=== PATIENT | female | born 1980 | race Caucasian/White ===

== ENCOUNTER 2018-05-02 11:38 | Emergency (ER) | payer OTHER, MEDICAID, SELFPAY ==
[2018-05-02 12:09] VITALS: BP 117/82; PULSE 90; RESP 13; TEMP 37.2; O2SAT 100
--- NOTE | 2018-05-02 14:50 | ED.ABDPAIN ---
HPI - Abdominal Pain <SAMMI Varela - Last Filed: 05/02/18 21:52> General Chief Complaint: Abdominal Pain Stated Complaint: STOMACH PAIN/VOMITING/SHAKINESS Time Seen by Provider: 05/02/18 14:35 Source: patient Mode of arrival: ambulatory Limitations: no limitations History of Present Illness HPI narrative: 37-year-old healthy female who was everyday smoker for complaint of having abdominal pain to her epigastric area over the past couple days. She also reports having nausea vomiting during the same timeframe. She was having some diarrhea as well. She denies any trauma to the abdomen area. Decreased p.o. intake due to the nausea vomiting. She denies any fevers although she does states she has had some chills. No urinary symptoms. Last bowel movement was earlier today and was soft. No flank pain. She denies any stressors relievers of her symptoms. MD complaint: abdominal pain Related Data Home Medications Medication Instructions Recorded Confirmed sertraline [Zoloft] 100 mg PO QDAY #0 08/10/16 Previous Rx's Medication Instructions Recorded hydrocodone-acetaminophen 0 tab PO Q6HP PRN #15 tab 08/10/16 ketorolac 10 mg PO Q6HP PRN #15 tab 08/10/16 methocarbamol 500 mg PO QIDP PRN #14 tab 08/10/16 ondansetron 4 mg PO BID-TID PRN #12 tab 05/02/18 Allergies Allergy/AdvReac Type Severity Reaction Status Date / Time No Known Drug Allergies Allergy Verified 05/02/18 15:05 Review of Systems <SAMMI Varela - Last Filed: 05/02/18 21:52> Constitutional Denies chills, Denies fever(s), Denies lethargy and Denies weakness Eyes Denies change in vision, Denies eye discharge, Denies irritation and Denies loss of vision ENT Ears, Nose, Mouth, and Throat: Denies change in voice, Denies neck pain and Denies sore throat Cardiovascular Denies chest pain, Denies irregular heart rhythm, Denies lightheadedness, Denies palpitations, Denies dyspnea, Denies dyspnea on exertion and Denies orthopnea Respiratory Denies cough, Denies dyspnea, Denies dyspnea on exertion and Denies wheezing Gastrointestinal Gastrointestinal: Reports abdominal pain, Denies change in bowel habits, Denies diarrhea, Denies nausea and Reports vomiting Genitourinary Denies hematuria, Denies flank pain, Denies urinary incontinence and Denies urinary urgency Musculoskeletal Denies neck pain Integumentary/Breasts Denies pruritus, Denies erythema, Denies rash and Denies wounds Neurologic Denies confusion, Denies loss of vision and Denies weakness Psychiatric Denies anxiety, Denies confusion, Denies depression, Denies homicidal ideation and Denies suicidal ideation Endocrine Denies palpitations Allergic/Immunologic Denies wheezing Exam <SAMMI Varela - Last Filed: 05/02/18 21:52> Initial Vital Signs Initial Vital Signs: Vital Signs Temperature 99 F 05/02/18 12:09 Pulse Rate 90 05/02/18 12:09 Respiratory Rate 13 05/02/18 12:09 Blood Pressure 117/82 05/02/18 12:09 Pulse Oximetry 100 05/02/18 12:09 Const General: cooperative and well developed Nutritional Appearance: well nourished Orientation: alert, awake, oriented x3 and not confused HENTX Mouth: oral mucosae normal and moist mucous membranes Eyes Conjunctivae: conjunctivae normal Sclera: sclerae normal Pupils: PERRL EOM: EOM intact bilaterally Resp Effort & Inspection: normal respiratory effort, able to speak in complete sentences, no respiratory distress and no use of accessory muscles Auscultation: clear to auscultation bilaterally, no rales, no rhonchi and no wheezes Cardio Rate: regular rate Rhythm: regular rhythm Heart Sounds: no click, no gallops, no murmurs and no rubs Pulses: normal peripheral pulses GI Inspection: non-distended Palpation: soft, no hepatosplenomegaly, No guarding, No pulsatile mass and tender (Tenderness epigastric) Auscultation: normal bowel sounds Skin General: no rashes or lesions noted, No jaundice and No petechiae Neuro General: alert, oriented x3, gait normal and no focal motor deficits Speech: speech normal <Xi Munguia DO - Last Filed: 05/06/18 07:17> Initial Vital Signs Initial Vital Signs: Vital Signs Temperature 99 F 05/02/18 12:09 Pulse Rate 90 05/02/18 12:09 Respiratory Rate 13 05/02/18 12:09 Blood Pressure 117/82 05/02/18 12:09 Pulse Oximetry 100 05/02/18 12:09 Course <SAMMI Varela - Last Filed: 05/02/18 21:52> Orders Ordered: Discontinued Medications Acetaminophen (Tylenol) 650 mg PO NOW ONE Stop: 05/02/18 17:41 Last Admin: 05/02/18 17:57 Dose: 650 mg Sodium Chloride (Normal Saline 0.9%) 500 mls @ 1,000 mls/hr IV BOLUS ONE Stop: 05/02/18 15:24 Last Infusion: 05/02/18 17:53 Dose: 1,000 mls/hr Admin: 05/02/18 15:22 Dose: 1,000 mls/hr Ondansetron HCl (Zofran) 4 mg IV NOW ONE Stop: 05/02/18 14:56 Last Admin: 05/02/18 15:21 Dose: 4 mg Vital Signs - 8 hr 05/02/18 18:04 Pulse Rate 86 Respiratory Rate 15 Blood Pressure [Left Arm] 116/92 H Pulse Oximetry 99 <Xi Munguia DO - Last Filed: 05/06/18 07:17> Orders Ordered: Discontinued Medications Acetaminophen (Tylenol) 650 mg PO NOW ONE Stop: 05/02/18 17:41 Last Admin: 05/02/18 17:57 Dose: 650 mg Sodium Chloride (Normal Saline 0.9%) 500 mls @ 1,000 mls/hr IV BOLUS ONE Stop: 05/02/18 15:24 Last Infusion: 05/02/18 17:53 Dose: 1,000 mls/hr Admin: 05/02/18 15:22 Dose: 1,000 mls/hr Ondansetron HCl (Zofran) 4 mg IV NOW ONE Stop: 05/02/18 14:56 Last Admin: 05/02/18 15:21 Dose: 4 mg Vital Signs - 8 hr 05/02/18 18:04 Pulse Rate 86 Respiratory Rate 15 Blood Pressure [Left Arm] 116/92 H Pulse Oximetry 99 MDM - Abdominal Pain <SAMMI Varela - Last Filed: 05/02/18 21:52> Lab Data Result diagrams: 05/02/18 14:20 05/02/18 14:20 Lab Results 05/02/18 05/02/18 05/02/18 Range/Units 14:20 14:20 16:00 WBC 4.2 L (4.5-11.0) X10^3/uL RBC 4.69 (4.0-5.2) X10^6/uL Hgb 13.4 (12.0-16.0) g/dL Hct 40.3 (36-46) % MCV 85.9 (80-100) fL MCH 28.6 (26-34) PG MCHC 33.3 (30-36) % RDW 13.4 (11.6-14.8) % Plt Count 198 (150-400) X10^3/uL Neut % (Auto) 67.8 (50-75) % Lymph % (Auto) 22.5 L (25-40) % [place] % (Auto) 8.6 (3-14) % Eos % (Auto) 0.8 L (2-4) % Baso % (Auto) 0.3 (0-2) % Neut # (Auto) 2800 (4203-2000) /uL Lymph # (Auto) 900 L (9627-7398) /uL [place] # (Auto) 400 (0-900) /uL Eos # (Auto) 0 (0-450) /uL Baso # (Auto) 0 (0-100) /uL Sodium 136 L (137-145) mmol/L Potassium 3.6 (3.4-5.1) mmol/L Chloride 102 (98-107) mmol/L Carbon Dioxide 24 (22-32) mmol/L BUN 11 (7-17) mg/dL Creatinine 0.60 (0.52-1.04) mg/dL Estimated GFR > 60.0 (>60) mL/min BUN/Creatinine Ratio 18.3 (6-22) Glucose 100 (70-100) mg/dL Calcium 8.6 (8.4-10.2) mg/dL Total Bilirubin 0.1 L (0.2-1.3) mg/dL AST 20 (14-36) IU/L ALT 27 (9-52) IU/L Alkaline Phosphatase 58 (38-126) U/L Total Protein 6.9 (6.3-8.2) g/dL Albumin 3.9 (3.5-5.0) g/dL Globulin 3.0 (1.7-4.1) g/dL Albumin/Globulin Ratio 1.3 (1.0-2.8) Lipase 31 (23-300) U/L Influenza A & B (PCR) Negative (Negative) Point of care testing: Point of Care Testing Test Results Negative Urine Dip Bedside Urine Glucose Negative Bedside Urine Bilirubin - Negative Bedside Urine Ketone - Negative Urine Specific [place] 1.010 Bedside Urine Occult Blood +/- Bedside Urine pH 6.0 Bedside Urine Protein - Negative Bedside Urine Urobilinogen - Negative Bedside Urine Nitrite - Negative Bedside Urine Leukocytes - Negative Esterase Imaging Data US - abdomen: Radiologist's impression: [address] [address] Ultrasound Report Signed Patient: Lito Bermudez#: [id number] : 1980Acct:[id number] Age/Sex: 37 / FDate of Service: 05/02/18 Loc: ED Accession Number: [id number] Procedure: US abdomen complete Ordering Provider: Saul Ku PROCEDURE: US ABDOMEN COMPLETE INDICATIONS: PAIN TO RIGHT UPPER QUADRANT/EPIGASTRIC AREA TECHNIQUE: Real-time scanning was performed of the abdominal and retroperitoneal organs, with image documentation. COMPARISON: None. FINDINGS: Liver: Liver is normal in size. Diffuse increased hepatic echogenicity noted. Gallbladder: Gallbladder is unremarkable. No gallbladder wall thickening. Negative sonographic Perry sign per stem sizer. Biliary ducts: Intrahepatic bile ducts are non-dilated. Extrahepatic bile duct caliber measures 3 mm. Pancreas: Visualized portions of the pancreatic head are sonographically normal. Pancreatic body and tail obscured by overlying bowel gas. Spleen: Spleen is normal in size and homogeneous in echotexture. Kidneys: Kidneys are normal in size and echotexture. Right kidney measures 10.1 cm long; left kidney measures 10.9 cm long. No hydronephrosis or nephrolithiasis. No solid masses. Aorta: Proximal abdominal aorta measures 1.7 cm. Mid abdominal aorta measures 1.3 cm. Distal abdominal aorta measures 1.4 cm. Iliacs: Right common iliac artery measures 0.8 cm. Left common iliac artery measures 0.7 cm. IVC: Intrahepatic inferior vena cava is patent. Miscellaneous: No free abdominal fluid. IMPRESSION: 1. No ultrasound evidence of acute cholecystitis. 2. Diffuse increased hepatic echogenicity, which can be seen with hepatic steatosis, hepatic fibrosis/cirrhosis, and/or hepatitis. Dictated by: Judson Osorio M.D. on 05/02/2018 at 17:18 Approved by: Judson Osorio M.D. on 05/02/2018 at 17:22 [facility] Narrative Medical decision making narrative: CBC was obtained and was unremarkable. Chem panel was also obtained was also unremarkable. Lipase was negative. Ultrasound of the abdomen was obtained was negative for any acute findings. It does show findings that could be consistent with fatty liver a. Patient is instructed to follow up with primary care provider for continued monitoring. Urinalysis was negative for urinary tract infection and also . Signs and symptoms present as a viral illness at this point. She is prescribed Zofran to help with the nausea. Plenty of fluids. Slowly advance diet from clear liquids as tolerated. For any worsening symptoms return emergency room. <Xi Munguia DO - Last Filed: 05/06/18 07:17> Lab Data Lab Results 05/02/18 05/02/18 05/02/18 Range/Units 14:20 14:20 16:00 WBC 4.2 L (4.5-11.0) X10^3/uL RBC 4.69 (4.0-5.2) X10^6/uL Hgb 13.4 (12.0-16.0) g/dL Hct 40.3 (36-46) % MCV 85.9 (80-100) fL MCH 28.6 (26-34) PG MCHC 33.3 (30-36) % RDW 13.4 (11.6-14.8) % Plt Count 198 (150-400) X10^3/uL Neut % (Auto) 67.8 (50-75) % Lymph % (Auto) 22.5 L (25-40) % [place] % (Auto) 8.6 (3-14) % Eos % (Auto) 0.8 L (2-4) % Baso % (Auto) 0.3 (0-2) % Neut # (Auto) 2800 (5186-7669) /uL Lymph # (Auto) 900 L (7919-6038) /uL [place] # (Auto) 400 (0-900) /uL Eos # (Auto) 0 (0-450) /uL Baso # (Auto) 0 (0-100) /uL Sodium 136 L (137-145) mmol/L Potassium 3.6 (3.4-5.1) mmol/L Chloride 102 (98-107) mmol/L Carbon Dioxide 24 (22-32) mmol/L BUN 11 (7-17) mg/dL Creatinine 0.60 (0.52-1.04) mg/dL Estimated GFR > 60.0 (>60) mL/min BUN/Creatinine Ratio 18.3 (6-22) Glucose 100 (70-100) mg/dL Calcium 8.6 (8.4-10.2) mg/dL Total Bilirubin 0.1 L (0.2-1.3) mg/dL AST 20 (14-36) IU/L ALT 27 (9-52) IU/L Alkaline Phosphatase 58 (38-126) U/L Total Protein 6.9 (6.3-8.2) g/dL Albumin 3.9 (3.5-5.0) g/dL Globulin 3.0 (1.7-4.1) g/dL Albumin/Globulin Ratio 1.3 (1.0-2.8) Lipase 31 (23-300) U/L Influenza A & B (PCR) Negative (Negative) Point of care testing: Point of Care Testing Test Results Negative Urine Dip Bedside Urine Glucose Negative Bedside Urine Bilirubin - Negative Bedside Urine Ketone - Negative Urine Specific [place] 1.010 Bedside Urine Occult Blood +/- Bedside Urine pH 6.0 Bedside Urine Protein - Negative Bedside Urine Urobilinogen - Negative Bedside Urine Nitrite - Negative Bedside Urine Leukocytes - Negative Esterase Imaging Data US - abdomen: Radiologist's impression: [place] [address] Ultrasound Report Signed Patient: Lito Bermudez#: [id number] : 1980Acct:[id number] Age/Sex: 37 / FDate of Service: 05/02/18 Loc: ED Accession Number: [id number] Procedure: US abdomen complete Ordering Provider: Saul Ku PROCEDURE: US ABDOMEN COMPLETE INDICATIONS: PAIN TO RIGHT UPPER QUADRANT/EPIGASTRIC AREA TECHNIQUE: Real-time scanning was performed of the abdominal and retroperitoneal organs, with image documentation. COMPARISON: None. FINDINGS: Liver: Liver is normal in size. Diffuse increased hepatic echogenicity noted. Gallbladder: Gallbladder is unremarkable. No gallbladder wall thickening. Negative sonographic Perry sign per stem sizer. Biliary ducts: Intrahepatic bile ducts are non-dilated. Extrahepatic bile duct caliber measures 3 mm. Pancreas: Visualized portions of the pancreatic head are sonographically normal. Pancreatic body and tail obscured by overlying bowel gas. Spleen: Spleen is normal in size and homogeneous in echotexture. Kidneys: Kidneys are normal in size and echotexture. Right kidney measures 10.1 cm long; left kidney measures 10.9 cm long. No hydronephrosis or nephrolithiasis. No solid masses. Aorta: Proximal abdominal aorta measures 1.7 cm. Mid abdominal aorta measures 1.3 cm. Distal abdominal aorta measures 1.4 cm. Iliacs: Right common iliac artery measures 0.8 cm. Left common iliac artery measures 0.7 cm. IVC: Intrahepatic inferior vena cava is patent. Miscellaneous: No free abdominal fluid. IMPRESSION: 1. No ultrasound evidence of acute cholecystitis. 2. Diffuse increased hepatic echogenicity, which can be seen with hepatic steatosis, hepatic fibrosis/cirrhosis, and/or hepatitis. Dictated by: Judson Osorio M.D. on 05/02/2018 at 17:18 Approved by: Judson Osorio M.D. on 05/02/2018 at 17:22 Discharge Plan Departure Patient Disposition: Home Clinical Impression: Nausea and vomiting in adult Discharge Date/Time: 05/02/18 18:16 Interventions: ED Discharge Assessment Last Done: 05/02/18 18:15 Instructions: Nausea and Vomiting-Adult Activity Restrictions/Additional Instructions: Laboratory results today were unremarkable. Ultrasound of the abdomen was obtained and was negative for any acute findings. Ultrasound does show findings consistent with having a fatty liver otherwise no other findings. Sinus symptoms presents as a viral illness. Use Zofran as prescribed help with any nausea vomiting. Plenty of fluids and rest. Slowly advance diet as tolerated from clear liquids. For any worsening symptoms return to the emergency room. Follow up with primary care provider. Prescriptions: New ondansetron 4 mg tablet,disintegrating 4 mg PO BID-TID PRN (Reason: nausea and vomiting) Qty: 12 RF: 0 No Action sertraline [Zoloft] 100 MG tablet 100 mg PO QDAY Qty: 0 RF: 0 methocarbamol 500 MG tablet 500 mg PO QIDP PRNQty: 14 RF: 0 hydrocodone-acetaminophen 5 MG/325 MG tablet PO Q6HP PRNQty: 15 RF: 0 ketorolac 10 MG tablet 10 mg PO Q6HP PRNQty: 15 RF: 0 Referrals: [facility] [Provider Group] <Xi Munguia DO - Last Filed: 05/06/18 07:17> Cosign ED Attending Cosignature Attestation: I was immediately available in the department for consultation. This documentation has been reviewed and I agree with assessment and plan. Supervised by Xi Munguia DO
--- NOTE | 2018-05-02 14:55 | DI.US.S_ITS ---
PROCEDURE: US ABDOMEN COMPLETE INDICATIONS: PAIN TO RIGHT UPPER QUADRANT/EPIGASTRIC AREA TECHNIQUE: Real-time scanning was performed of the abdominal and retroperitoneal organs, with image documentation. COMPARISON: None. FINDINGS: Liver: Liver is normal in size. Diffuse increased hepatic echogenicity noted. Gallbladder: Gallbladder is unremarkable. No gallbladder wall thickening. Negative sonographic Perry sign per bike designer. Biliary ducts: Intrahepatic bile ducts are non-dilated. Extrahepatic bile duct caliber measures 3 mm. Pancreas: Visualized portions of the pancreatic head are sonographically normal. Pancreatic body and tail obscured by overlying bowel gas. Spleen: Spleen is normal in size and homogeneous in echotexture. Kidneys: Kidneys are normal in size and echotexture. Right kidney measures 10.1 cm long; left kidney measures 10.9 cm long. No hydronephrosis or nephrolithiasis. No solid masses. Aorta: Proximal abdominal aorta measures 1.7 cm. Mid abdominal aorta measures 1.3 cm. Distal abdominal aorta measures 1.4 cm. Iliacs: Right common iliac artery measures 0.8 cm. Left common iliac artery measures 0.7 cm. IVC: Intrahepatic inferior vena cava is patent. Miscellaneous: No free abdominal fluid. IMPRESSION: 1. No ultrasound evidence of acute cholecystitis. 2. Diffuse increased hepatic echogenicity, which can be seen with hepatic steatosis, hepatic fibrosis/cirrhosis, and/or hepatitis. Dictated by: Judson Osorio M.D. on 05/02/2018 at 17:18 Approved by: Judson Osorio M.D. on 05/02/2018 at 17:22
[2018-05-02 15:04] LABS: Add Manual Diff / Slide Review NO; Basophils Absolute Auto 0 /uL (0-100); Basophils Percent Auto 0.3 % (0-2); Eosinophils Absolute Auto 0 /uL (0-450); Eosinophils Percent Auto 0.8 % (2-4); Hematocrit 40.3 % (36-46); Hemoglobin 13.4 g/dL (12.0-16.0); Lymphocytes Absolute Auto 900 /uL (1100-4500); Lymphocytes Percent Auto 22.5 % (25-40); Mean Corpuscular HGB Conc 33.3 % (30-36); Mean Corpuscular Hemoglobin 28.6 PG (26-34); Mean Corpuscular Volume 85.9 fL (80-100); Monocytes Absolute Auto 400 /uL (0-900); Monocytes Percent Auto 8.6 % (3-14); Neutrophils Absolute Auto 2800 /uL (1500-7000); Neutrophils Percent Auto 67.8 % (50-75); Platelet Count 198 X10^3/uL (150-400); Red Blood Cell Count 4.69 X10^6/uL (4.0-5.2); Red Cell Distribution Width 13.4 % (11.6-14.8); White Blood Cell Count 4.2 X10^3/uL (4.5-11.0)
[2018-05-02 15:10] LABS: Alanine Aminotransferase 27 IU/L (9-52); Albumin 3.9 g/dL (3.5-5.0); Albumin Globulin Ratio 1.3 (1.0-2.8); Alkaline Phosphatase 58 U/L (38-126); Aspartate Aminotransferase 20 IU/L (14-36); BUN Creatinine Ratio 18.3 (6-22); Bilirubin Total 0.1 mg/dL (0.2-1.3); Blood Urea Nitrogen 11 mg/dL (7-17); Calcium 8.6 mg/dL (8.4-10.2); Carbon Dioxide 24 mmol/L (22-32); Chloride 102 mmol/L (98-107); Estimated Glomerular Filt Rate > 60.0 mL/min (>60); Glucose 100 mg/dL (70-100); HEMOLYSIS < 15 (0-50); Lipase 31 U/L (23-300); Potassium 3.6 mmol/L (3.4-5.1); Sodium 136 mmol/L (137-145); Total Protein 6.9 g/dL (6.3-8.2)
[2018-05-02] MEDS: ONDANSETRON 4 MG/2 ML INJ IV (15:21)
[2018-05-02] MEDS: SODIUM CHLORIDE 0.9% 500 ML 1000 ML IV (15:22)
--- NOTE | 2018-05-02 16:28 | PC.NURSE ---
1553 - Report from Alona PAGAN flu swab complete and to lab
[2018-05-02 16:37] LABS: Influenza A and B by PCR Rapid Negative (Negative)
--- NOTE | 2018-05-02 16:59 | ED_ITS ---
HPI - Abdominal Pain <SAMMI Varela - Last Filed: 05/02/18 21:52> General Chief Complaint: Abdominal Pain Stated Complaint: STOMACH PAIN/VOMITING/SHAKINESS Time Seen by Provider: 05/02/18 14:35 Source: patient Mode of arrival: ambulatory Limitations: no limitations History of Present Illness HPI narrative: 37-year-old healthy female who was everyday smoker for complaint of having abdominal pain to her epigastric area over the past couple days. She also reports having nausea vomiting during the same timeframe. She was having some diarrhea as well. She denies any trauma to the abdomen area. Decreased p.o. intake due to the nausea vomiting. She denies any fevers although she does states she has had some chills. No urinary symptoms. Last bowel movement was earlier today and was soft. No flank pain. She denies any stressors relievers of her symptoms. MD complaint: abdominal pain Related Data Home Medications Medication Instructions Recorded Confirmed sertraline [Zoloft] 100 mg PO QDAY #0 08/10/16 Previous Rx's Medication Instructions Recorded hydrocodone-acetaminophen 0 tab PO Q6HP PRN #15 tab 08/10/16 ketorolac 10 mg PO Q6HP PRN #15 tab 08/10/16 methocarbamol 500 mg PO QIDP PRN #14 tab 08/10/16 ondansetron 4 mg PO BID-TID PRN #12 tab 05/02/18 Allergies Allergy/AdvReac Type Severity Reaction Status Date / Time No Known Drug Allergies Allergy Verified 05/02/18 15:05 Review of Systems <SAMMI Varela - Last Filed: 05/02/18 21:52> Constitutional Denies chills, Denies fever(s), Denies lethargy and Denies weakness Eyes Denies change in vision, Denies eye discharge, Denies irritation and Denies loss of vision ENT Ears, Nose, Mouth, and Throat: Denies change in voice, Denies neck pain and Denies sore throat Cardiovascular Denies chest pain, Denies irregular heart rhythm, Denies lightheadedness, Denies palpitations, Denies dyspnea, Denies dyspnea on exertion and Denies orthopnea Respiratory Denies cough, Denies dyspnea, Denies dyspnea on exertion and Denies wheezing Gastrointestinal Gastrointestinal: Reports abdominal pain, Denies change in bowel habits, Denies diarrhea, Denies nausea and Reports vomiting Genitourinary Denies hematuria, Denies flank pain, Denies urinary incontinence and Denies urinary urgency Musculoskeletal Denies neck pain Integumentary/Breasts Denies pruritus, Denies erythema, Denies rash and Denies wounds Neurologic Denies confusion, Denies loss of vision and Denies weakness Psychiatric Denies anxiety, Denies confusion, Denies depression, Denies homicidal ideation and Denies suicidal ideation Endocrine Denies palpitations Allergic/Immunologic Denies wheezing Exam <SAMMI Varela - Last Filed: 05/02/18 21:52> Initial Vital Signs Initial Vital Signs: Vital Signs Temperature 99 F 05/02/18 12:09 Pulse Rate 90 05/02/18 12:09 Respiratory Rate 13 05/02/18 12:09 Blood Pressure 117/82 05/02/18 12:09 Pulse Oximetry 100 05/02/18 12:09 Const General: cooperative and well developed Nutritional Appearance: well nourished Orientation: alert, awake, oriented x3 and not confused HENDE Mouth: oral mucosae normal and moist mucous membranes Eyes Conjunctivae: conjunctivae normal Sclera: sclerae normal Pupils: PERRL EOM: EOM intact bilaterally Resp Effort & Inspection: normal respiratory effort, able to speak in complete sentences, no respiratory distress and no use of accessory muscles Auscultation: clear to auscultation bilaterally, no rales, no rhonchi and no wheezes Cardio Rate: regular rate Rhythm: regular rhythm Heart Sounds: no click, no gallops, no murmurs and no rubs Pulses: normal peripheral pulses GI Inspection: non-distended Palpation: soft, no hepatosplenomegaly, No guarding, No pulsatile mass and tender (Tenderness epigastric) Auscultation: normal bowel sounds Skin General: no rashes or lesions noted, No jaundice and No petechiae Neuro General: alert, oriented x3, gait normal and no focal motor deficits Speech: speech normal <Xi Munguia DO - Last Filed: 05/06/18 07:17> Initial Vital Signs Initial Vital Signs: Vital Signs Temperature 99 F 05/02/18 12:09 Pulse Rate 90 05/02/18 12:09 Respiratory Rate 13 05/02/18 12:09 Blood Pressure 117/82 05/02/18 12:09 Pulse Oximetry 100 05/02/18 12:09 Course <SAMMI Varela - Last Filed: 05/02/18 21:52> Orders Ordered: Discontinued Medications Acetaminophen (Tylenol) 650 mg PO NOW ONE Stop: 05/02/18 17:41 Last Admin: 05/02/18 17:57 Dose: 650 mg Sodium Chloride (Normal Saline 0.9%) 500 mls @ 1,000 mls/hr IV BOLUS ONE Stop: 05/02/18 15:24 Last Infusion: 05/02/18 17:53 Dose: 1,000 mls/hr Admin: 05/02/18 15:22 Dose: 1,000 mls/hr Ondansetron HCl (Zofran) 4 mg IV NOW ONE Stop: 05/02/18 14:56 Last Admin: 05/02/18 15:21 Dose: 4 mg Vital Signs - 8 hr 05/02/18 18:04 Pulse Rate 86 Respiratory Rate 15 Blood Pressure [Left Arm] 116/92 H Pulse Oximetry 99 <Xi Munguia DO - Last Filed: 05/06/18 07:17> Orders Ordered: Discontinued Medications Acetaminophen (Tylenol) 650 mg PO NOW ONE Stop: 05/02/18 17:41 Last Admin: 05/02/18 17:57 Dose: 650 mg Sodium Chloride (Normal Saline 0.9%) 500 mls @ 1,000 mls/hr IV BOLUS ONE Stop: 05/02/18 15:24 Last Infusion: 05/02/18 17:53 Dose: 1,000 mls/hr Admin: 05/02/18 15:22 Dose: 1,000 mls/hr Ondansetron HCl (Zofran) 4 mg IV NOW ONE Stop: 05/02/18 14:56 Last Admin: 05/02/18 15:21 Dose: 4 mg Vital Signs - 8 hr 05/02/18 18:04 Pulse Rate 86 Respiratory Rate 15 Blood Pressure [Left Arm] 116/92 H Pulse Oximetry 99 MDM - Abdominal Pain <SAMMI Varela - Last Filed: 05/02/18 21:52> Lab Data Result diagrams: 05/02/18 14:20 05/02/18 14:20 Lab Results 05/02/18 05/02/18 05/02/18 Range/Units 14:20 14:20 16:00 WBC 4.2 L (4.5-11.0) X10^3/uL RBC 4.69 (4.0-5.2) X10^6/uL Hgb 13.4 (12.0-16.0) g/dL Hct 40.3 (36-46) % MCV 85.9 (80-100) fL MCH 28.6 (26-34) PG MCHC 33.3 (30-36) % RDW 13.4 (11.6-14.8) % Plt Count 198 (150-400) X10^3/uL Neut % (Auto) 67.8 (50-75) % Lymph % (Auto) 22.5 L (25-40) % [place] % (Auto) 8.6 (3-14) % Eos % (Auto) 0.8 L (2-4) % Baso % (Auto) 0.3 (0-2) % Neut # (Auto) 2800 (1101-1433) /uL Lymph # (Auto) 900 L (6790-3892) /uL [place] # (Auto) 400 (0-900) /uL Eos # (Auto) 0 (0-450) /uL Baso # (Auto) 0 (0-100) /uL Sodium 136 L (137-145) mmol/L Potassium 3.6 (3.4-5.1) mmol/L Chloride 102 (98-107) mmol/L Carbon Dioxide 24 (22-32) mmol/L BUN 11 (7-17) mg/dL Creatinine 0.60 (0.52-1.04) mg/dL Estimated GFR > 60.0 (>60) mL/min BUN/Creatinine Ratio 18.3 (6-22) Glucose 100 (70-100) mg/dL Calcium 8.6 (8.4-10.2) mg/dL Total Bilirubin 0.1 L (0.2-1.3) mg/dL AST 20 (14-36) IU/L ALT 27 (9-52) IU/L Alkaline Phosphatase 58 (38-126) U/L Total Protein 6.9 (6.3-8.2) g/dL Albumin 3.9 (3.5-5.0) g/dL Globulin 3.0 (1.7-4.1) g/dL Albumin/Globulin Ratio 1.3 (1.0-2.8) Lipase 31 (23-300) U/L Influenza A & B (PCR) Negative (Negative) Point of care testing: Point of Care Testing Test Results Negative Urine Dip Bedside Urine Glucose Negative Bedside Urine Bilirubin - Negative Bedside Urine Ketone - Negative Urine Specific [place] 1.010 Bedside Urine Occult Blood +/- Bedside Urine pH 6.0 Bedside Urine Protein - Negative Bedside Urine Urobilinogen - Negative Bedside Urine Nitrite - Negative Bedside Urine Leukocytes - Negative Esterase Imaging Data US - abdomen: Radiologist's impression: [address] [address] Ultrasound Report Signed Patient: Lito Bermudez#: [id number] : 1980Acct:[id number] Age/Sex: 37 / FDate of Service: 05/02/18 Loc: ED Accession Number: [id number] Procedure: US abdomen complete Ordering Provider: Saul Ku PROCEDURE: US ABDOMEN COMPLETE INDICATIONS: PAIN TO RIGHT UPPER QUADRANT/EPIGASTRIC AREA TECHNIQUE: Real-time scanning was performed of the abdominal and retroperitoneal organs, with image documentation. COMPARISON: None. FINDINGS: Liver: Liver is normal in size. Diffuse increased hepatic echogenicity noted. Gallbladder: Gallbladder is unremarkable. No gallbladder wall thickening. Negative sonographic Perry sign per diesel technology instructor. Biliary ducts: Intrahepatic bile ducts are non-dilated. Extrahepatic bile duct caliber measures 3 mm. Pancreas: Visualized portions of the pancreatic head are sonographically normal. Pancreatic body and tail obscured by overlying bowel gas. Spleen: Spleen is normal in size and homogeneous in echotexture. Kidneys: Kidneys are normal in size and echotexture. Right kidney measures 10.1 cm long; left kidney measures 10.9 cm long. No hydronephrosis or nephrolithiasis. No solid masses. Aorta: Proximal abdominal aorta measures 1.7 cm. Mid abdominal aorta measures 1.3 cm. Distal abdominal aorta measures 1.4 cm. Iliacs: Right common iliac artery measures 0.8 cm. Left common iliac artery measures 0.7 cm. IVC: Intrahepatic inferior vena cava is patent. Miscellaneous: No free abdominal fluid. IMPRESSION: 1. No ultrasound evidence of acute cholecystitis. 2. Diffuse increased hepatic echogenicity, which can be seen with hepatic steatosis, hepatic fibrosis/cirrhosis, and/or hepatitis. Dictated by: Judson Osorio M.D. on 05/02/2018 at 17:18 Approved by: Judson Osorio M.D. on 05/02/2018 at 17:22 [facility] Narrative Medical decision making narrative: CBC was obtained and was unremarkable. Chem panel was also obtained was also unremarkable. Lipase was negative. Ultrasound of the abdomen was obtained was negative for any acute findings. It does show findings that could be consistent with fatty liver a. Patient is instructed to follow up with primary care provider for continued monitoring. Urinalysis was negative for urinary tract infection and also . Signs and symptoms present as a viral illness at this point. She is prescribed Zofran to help with the nausea. Plenty of fluids. Slowly advance diet from clear liquids as tolerated. For any worsening symptoms return emergency room. <Xi Munguia DO - Last Filed: 05/06/18 07:17> Lab Data Lab Results 05/02/18 05/02/18 05/02/18 Range/Units 14:20 14:20 16:00 WBC 4.2 L (4.5-11.0) X10^3/uL RBC 4.69 (4.0-5.2) X10^6/uL Hgb 13.4 (12.0-16.0) g/dL Hct 40.3 (36-46) % MCV 85.9 (80-100) fL MCH 28.6 (26-34) PG MCHC 33.3 (30-36) % RDW 13.4 (11.6-14.8) % Plt Count 198 (150-400) X10^3/uL Neut % (Auto) 67.8 (50-75) % Lymph % (Auto) 22.5 L (25-40) % [place] % (Auto) 8.6 (3-14) % Eos % (Auto) 0.8 L (2-4) % Baso % (Auto) 0.3 (0-2) % Neut # (Auto) 2800 (3189-7069) /uL Lymph # (Auto) 900 L (7057-4634) /uL [place] # (Auto) 400 (0-900) /uL Eos # (Auto) 0 (0-450) /uL Baso # (Auto) 0 (0-100) /uL Sodium 136 L (137-145) mmol/L Potassium 3.6 (3.4-5.1) mmol/L Chloride 102 (98-107) mmol/L Carbon Dioxide 24 (22-32) mmol/L BUN 11 (7-17) mg/dL Creatinine 0.60 (0.52-1.04) mg/dL Estimated GFR > 60.0 (>60) mL/min BUN/Creatinine Ratio 18.3 (6-22) Glucose 100 (70-100) mg/dL Calcium 8.6 (8.4-10.2) mg/dL Total Bilirubin 0.1 L (0.2-1.3) mg/dL AST 20 (14-36) IU/L ALT 27 (9-52) IU/L Alkaline Phosphatase 58 (38-126) U/L Total Protein 6.9 (6.3-8.2) g/dL Albumin 3.9 (3.5-5.0) g/dL Globulin 3.0 (1.7-4.1) g/dL Albumin/Globulin Ratio 1.3 (1.0-2.8) Lipase 31 (23-300) U/L Influenza A & B (PCR) Negative (Negative) Point of care testing: Point of Care Testing Test Results Negative Urine Dip Bedside Urine Glucose Negative Bedside Urine Bilirubin - Negative Bedside Urine Ketone - Negative Urine Specific [place] 1.010 Bedside Urine Occult Blood +/- Bedside Urine pH 6.0 Bedside Urine Protein - Negative Bedside Urine Urobilinogen - Negative Bedside Urine Nitrite - Negative Bedside Urine Leukocytes - Negative Esterase Imaging Data US - abdomen: Radiologist's impression: [place] [address] Ultrasound Report Signed Patient: Lito Bermudez#: [id number] : 1980Acct:[id number] Age/Sex: 37 / FDate of Service: 05/02/18 Loc: ED Accession Number: [id number] Procedure: US abdomen complete Ordering Provider: Saul Ku PROCEDURE: US ABDOMEN COMPLETE INDICATIONS: PAIN TO RIGHT UPPER QUADRANT/EPIGASTRIC AREA TECHNIQUE: Real-time scanning was performed of the abdominal and retroperitoneal organs, with image documentation. COMPARISON: None. FINDINGS: Liver: Liver is normal in size. Diffuse increased hepatic echogenicity noted. Gallbladder: Gallbladder is unremarkable. No gallbladder wall thickening. Negative sonographic Perry sign per diesel technology instructor. Biliary ducts: Intrahepatic bile ducts are non-dilated. Extrahepatic bile duct caliber measures 3 mm. Pancreas: Visualized portions of the pancreatic head are sonographically normal. Pancreatic body and tail obscured by overlying bowel gas. Spleen: Spleen is normal in size and homogeneous in echotexture. Kidneys: Kidneys are normal in size and echotexture. Right kidney measures 10.1 cm long; left kidney measures 10.9 cm long. No hydronephrosis or nephrolithiasis. No solid masses. Aorta: Proximal abdominal aorta measures 1.7 cm. Mid abdominal aorta measures 1.3 cm. Distal abdominal aorta measures 1.4 cm. Iliacs: Right common iliac artery measures 0.8 cm. Left common iliac artery me asures 0.7 cm. IVC: Intrahepatic inferior vena cava is patent. Miscellaneous: No free abdominal fluid. IMPRESSION: 1. No ultrasound evidence of acute cholecystitis. 2. Diffuse increased hepatic echogenicity, which can be seen with hepatic steatosis, hepatic fibrosis/cirrhosis, and/or hepatitis. Dictated by: Judson Osorio M.D. on 05/02/2018 at 17:18 Approved by: Judson Osorio M.D. on 05/02/2018 at 17:22 Discharge Plan Departure Patient Disposition: Home Clinical Impression: Nausea and vomiting in adult Discharge Date/Time: 05/02/18 18:16 Interventions: ED Discharge Assessment Last Done: 05/02/18 18:15 Instructions: Nausea and Vomiting-Adult Activity Restrictions/Additional Instructions: Laboratory results today were unremarkable. Ultrasound of the abdomen was obtained and was negative for any acute findings. Ultrasound does show findings consistent with having a fatty liver otherwise no other findings. Sinus symptoms presents as a viral illness. Use Zofran as prescribed help with any nausea vomiting. Plenty of fluids and rest. Slowly advance diet as tolerated from clear liquids. For any worsening symptoms return to the emergency room. Follow up with primary care provider. Prescriptions: New ondansetron 4 mg tablet,disintegrating 4 mg PO BID-TID PRN (Reason: nausea and vomiting) Qty: 12 RF: 0 No Action sertraline [Zoloft] 100 MG tablet 100 mg PO QDAY Qty: 0 RF: 0 methocarbamol 500 MG tablet 500 mg PO QIDP PRNQty: 14 RF: 0 hydrocodone-acetaminophen 5 MG/325 MG tablet PO Q6HP PRNQty: 15 RF: 0 ketorolac 10 MG tablet 10 mg PO Q6HP PRNQty: 15 RF: 0 Referrals: [facility] [Provider Group] <Xi Munguia DO - Last Filed: 05/06/18 07:17> Cosign ED Attending Cosignature Attestation: I was immediately available in the department for consultation. This documentation has been reviewed and I agree with assessment and plan. Supervised by Xi Munguia DO
[2018-05-02] MEDS: ACETAMINOPHEN 325 MG TABLET 650 MG PO (17:57)
[2018-05-02 18:04] VITALS: BP 116/92; PULSE 86; RESP 15; O2SAT 99
== END 2018-05-02 18:16 | disposition home or self-care (01) ==
PROVIDERS: Emergency Provider Nurse Practitioner Family
DX: R10.9 Unspecified abdominal pain (principal); R11.2 Nausea with vomiting, unspecified
CPT/HCPCS: 36591; 76700; 80053; 81003; 81025; 83690; 85025; 87400; 96361; 96374; 99283; 99284; J2405